=== PATIENT | male | born 1955 | race Caucasian/White ===

== ENCOUNTER 2020-12-21 15:52 | Day surgery (SDC) | payer BC ==
[2020-12-21] MEDS ORDERED: SYNVISC 16 MG/2 ML SYRINGE IU ONE (15:53)
[2020-12-21] MEDS ORDERED: Xylocaine 1% Vial 30 ML PF IJ ONE (15:53)
--- NOTE | 2020-12-22 08:35 | XRAY ---
Indication: Right knee injection. Intraoperative fluoroscopy provided for 10 seconds. Single digital spot image submitted for interpretation demonstrates needle tip projecting over the right femur intercondylar notch. Small amount of contrast injected for needle tip placement. Correlate with intraoperative findings/report.
--- NOTE | 2020-12-22 08:37 | XRAY ---
Indication: Left knee injection. Intraoperative fluoroscopy provided for 8 seconds. Single digital spot image submitted for interpretation demonstrates needle tip projecting over the left femur intercondylar notch. Small amount of contrast injected for needle tip placement. Correlate with intraoperative findings/report.
--- NOTE | 2020-12-22 08:40 | XRAY ---
10 seconds fluoroscopy time in surgery for intra-articular injection of the right knee.
--- NOTE | 2020-12-22 08:40 | XRAY ---
8 seconds fluoroscopy time in surgery for intra-articular injection of the left knee.
== END 2020-12-21 17:36 | disposition home or self-care (01) ==
LOC: SDC-PAIN 15:52
PROVIDERS: ATTEND Psychiatry & Neurology Pain Medicine
DX: M17.0 Bilateral primary osteoarthritis of knee (principal); F41.9 Anxiety disorder, unspecified; F32.9 Major depressive disorder, single episode, unspecified; J44.9 Chronic obstructive pulmonary disease, unspecified; Z79.01 Long term (current) use of anticoagulants
CPT/HCPCS: 73560; 77002; 82947; J2001; J7325

== ENCOUNTER 2020-12-28 14:09 | Day surgery (SDC) | payer BC ==
[2020-12-28] MEDS ORDERED: SYNVISC 16 MG/2 ML SYRINGE IU ONE (14:10)
[2020-12-28] MEDS ORDERED: Xylocaine 1% Vial 30 ML PF IJ ONE (14:10)
--- NOTE | 2020-12-28 17:40 | XRAY ---
6 seconds fluoroscopy time in surgery for intra-articular injection of the left knee.
--- NOTE | 2020-12-28 17:51 | XRAY ---
6 seconds fluoroscopy time in surgery for intra-articular injection of the right knee.
== END 2020-12-28 16:36 | disposition home or self-care (01) ==
LOC: SDC-PAIN 14:09
PROVIDERS: ATTEND Psychiatry & Neurology Pain Medicine
DX: M17.0 Bilateral primary osteoarthritis of knee (principal); E11.9 Type 2 diabetes mellitus without complications; J44.9 Chronic obstructive pulmonary disease, unspecified; Z79.899 Other long term (current) drug therapy
CPT/HCPCS: 20610; 73560; 77002; 82947; J2001; J7325; Q9966

== ENCOUNTER 2021-01-11 10:48 | Day surgery (SDC) | payer BC ==
[2021-01-11] MEDS ORDERED: Xylocaine 1% Vial 30 ML PF IJ ONE (10:49)
[2021-01-11] MEDS ORDERED: SYNVISC 16 MG/2 ML SYRINGE IU ONE (10:49)
--- NOTE | 2021-01-11 13:46 | XRAY ---
Indication: Right knee injection. Intraoperative fluoroscopy provided for 7 seconds. Single digital spot image submitted for interpretation demonstrates needle tip projecting over the right femur intercondylar notch. Small amount of contrast injected for needle tip placement. Correlate with intraoperative findings/report.
--- NOTE | 2021-01-11 13:48 | XRAY ---
8 seconds of fluoroscopy was used in surgery for a left intra-articular knee injection.
--- NOTE | 2021-01-11 13:48 | XRAY ---
7 seconds of fluoroscopy was used in surgery for a right intra-articular knee injection.
== END 2021-01-11 13:21 | disposition home or self-care (01) ==
LOC: SDC-PAIN 10:48
PROVIDERS: ATTEND Psychiatry & Neurology Pain Medicine
DX: M17.0 Bilateral primary osteoarthritis of knee (principal); Z79.01 Long term (current) use of anticoagulants; J44.9 Chronic obstructive pulmonary disease, unspecified
CPT/HCPCS: 20610; 73560; 77002; 82947; J2001; J7325; Q9966

== ENCOUNTER 2021-04-12 08:19 | Day surgery (SDC) | payer BC ==
[2021-04-12] MEDS ORDERED: LIDOCAINE HCL 2% 100 MG/5 ML IJ ONE (08:20)
[2021-04-12] MEDS ORDERED: Lactated Ringers 1,000 ML IV ONE (09:45)
[2021-04-12] MEDS ORDERED: DIPRIVAN 200 MG/20 ML IV ONE (09:47)
[2021-04-12] MEDS ORDERED: Ketamine HCl 50 MG/ML ONE (09:47)
--- NOTE | 2021-04-12 11:36 | XRAY ---
Indication: Bilateral L4-S1 MBB. Intraoperative fluoroscopy provided for 18 seconds. Single digital spot image submitted for interpretation demonstrates posterior needle tips projecting over the expected left and right L4-S1 nerve roots. Correlate with intraoperative findings/report.
--- NOTE | 2021-04-12 11:42 | XRAY ---
18 seconds fluoroscopy time in surgery for bilateral L4-S1 MBB.
== END 2021-04-12 10:20 | disposition home or self-care (01) ==
LOC: SDC-PAIN 08:19
PROVIDERS: ATTEND Psychiatry & Neurology Pain Medicine
DX: M47.816 Spondylosis without myelopathy or radiculopathy, lumbar region (principal); E11.9 Type 2 diabetes mellitus without complications; Z79.899 Other long term (current) drug therapy
CPT/HCPCS: 64493; 64494; 72020; 77002; 82947; J2704

== ENCOUNTER 2021-05-24 09:11 | Day surgery (SDC) | payer BC ==
[2021-05-24] MEDS ORDERED: BUPIVACAINE 0.5% VIAL IJ ONE (09:12)
[2021-05-24] MEDS ORDERED: DIPRIVAN 200 MG/20 ML IV ONE ×2 (10:42→10:49)
--- NOTE | 2021-05-24 11:40 | XRAY ---
16 seconds fluoroscopy time in surgery for bilateral L4-S1 MBB.
--- NOTE | 2021-05-24 11:44 | XRAY ---
Indication: Bilateral L4-S1 MBB. Intraoperative fluoroscopy provided for 16 seconds. Single digital spot images submitted for interpretation demonstrates posterior needle tips projecting over the expected left and right L4-S1 nerve roots. Correlate with intraoperative findings/report.
[2021-05-24] MEDS ORDERED: Lactated Ringers 1,000 ML IV ONE (15:20)
== END 2021-05-24 11:10 | disposition home or self-care (01) ==
LOC: SDC-PAIN 09:11
PROVIDERS: ATTEND Psychiatry & Neurology Pain Medicine
DX: M47.816 Spondylosis without myelopathy or radiculopathy, lumbar region (principal); E11.9 Type 2 diabetes mellitus without complications; Z79.899 Other long term (current) drug therapy
CPT/HCPCS: 64493; 64494; 72020; 77002; 82947; J2704

== ENCOUNTER 2022-07-04 09:51 | Day surgery (SDC) | payer BC ==
[2022-07-04] MEDS ORDERED: Depo-Medrol 40 MG/ML IM ONE (09:52)
[2022-07-04] MEDS ORDERED: BUPIVACAINE 0.5% VIAL IJ ONE (09:52)
[2022-07-04] MEDS ORDERED: Xylocaine 1% Vial 30 ML PF IJ ONE (09:52)
[2022-07-04 11:01] LABS: INR 0.97 (0.8-3.0); PROTIME 10.3 SECONDS (9.4-12.5)
[2022-07-04] MEDS ORDERED: DIPRIVAN 200 MG/20 ML IV ONE (11:22)
[2022-07-04] MEDS ORDERED: TORAdol 30 mg Injection ONE (11:27)
[2022-07-04] MEDS ORDERED: Ketamine HCl 50 MG/ML ONE (11:30)
[2022-07-04] MEDS ORDERED: Lactated Ringers 1,000 ML IV ONE (11:53)
--- NOTE | 2022-07-04 12:02 | XRAY ---
Indication: Right L4-S1 RFA. Intraoperative fluoroscopy provided for 38 seconds. 5 digital spot images submitted for interpretation demonstrates posterior needle tips projecting over expected right L4-S1 nerve roots. Correlate with intraoperative findings/report.
--- NOTE | 2022-07-04 12:02 | XRAY ---
38 seconds of fluoroscopy was used in surgery for a right L4-S1 RFA.
== END 2022-07-04 12:00 | disposition home or self-care (01) ==
LOC: SDC-PAIN 09:51
PROVIDERS: ATTEND Psychiatry & Neurology Pain Medicine
DX: M47.816 Spondylosis without myelopathy or radiculopathy, lumbar region (principal); E11.9 Type 2 diabetes mellitus without complications; Z79.01 Long term (current) use of anticoagulants
CPT/HCPCS: 36415; 64635; 64636; 72100; 77002; 82947; 85610; J1030; J1885; J2001; J2704

== ENCOUNTER 2022-07-18 09:41 | Day surgery (SDC) | payer BC ==
[2022-07-18] MEDS ORDERED: BUPIVACAINE 0.5% VIAL IJ ONE (09:42)
[2022-07-18] MEDS ORDERED: Depo-Medrol 40 MG/ML IM ONE (09:42)
[2022-07-18] MEDS ORDERED: Xylocaine 1% Vial 30 ML PF IJ ONE (09:42)
[2022-07-18] MEDS ORDERED: Reglan 10 MG/2 ML ONE (10:43)
[2022-07-18] MEDS ORDERED: Pepcid 20 MG VIAL IV ONE ×2 (10:43→10:45)
[2022-07-18 10:56] LABS: INR 1.08 (0.8-3.0); PROTIME 11.4 SECONDS (9.4-12.5)
[2022-07-18] MEDS ORDERED: DIPRIVAN 200 MG/20 ML IV ONE (11:38)
[2022-07-18] MEDS ORDERED: Ketamine HCl 50 MG/ML ONE (11:41)
[2022-07-18] MEDS ORDERED: Lactated Ringers 1,000 ML IV ONE (13:02)
--- NOTE | 2022-07-18 19:39 | XRAY ---
Indication: Left L4-S1 RFA. Intraoperative fluoroscopy provided for 28 seconds. 4 digital spot submitted for interpretation demonstrates posterior needle tips projecting over the expected left L4-S1 nerve roots. Correlate with intraoperative findings/report.
--- NOTE | 2022-07-18 20:02 | XRAY ---
28 seconds of fluoroscopy was used in surgery for a left L4-S1 RFA.
== END 2022-07-18 12:15 | disposition home or self-care (01) ==
LOC: SDC-PAIN 09:41
PROVIDERS: ATTEND Psychiatry & Neurology Pain Medicine
DX: M47.816 Spondylosis without myelopathy or radiculopathy, lumbar region (principal); E11.9 Type 2 diabetes mellitus without complications; Z79.899 Other long term (current) drug therapy; Z79.01 Long term (current) use of anticoagulants
CPT/HCPCS: 36415; 64635; 64636; 72100; 77002; 82947; 85610; J1030; J2001; J2704

== ENCOUNTER 2023-12-25 09:42 | Day surgery (SDC) | payer MEDICARE, OTHER ==
[2023-12-25] MEDS ORDERED: BUPIVACAINE 0.5% VIAL IJ ONE (09:43)
[2023-12-25] MEDS ORDERED: Depo-Medrol 40 MG/ML IM ONE (09:43)
[2023-12-25] MEDS ORDERED: XYLOCAINE-MPF 1% 5ML SDV IJ ONE (09:43)
[2023-12-25 10:30] LABS: INR 0.95 (0.8-3.0); PROTIME 10.4 SECONDS (9.4-12.5)
[2023-12-25] MEDS ORDERED: DIPRIVAN 200 MG/20 ML IV ONE (11:20)
[2023-12-25] MEDS ORDERED: DEXMEDETOMIDINE 80 MCG/20ML-NS IV ONE (11:20)
--- NOTE | 2023-12-25 11:47 | XRAY ---
Indication: Right L4-S1 RFA. Intraoperative fluoroscopy provided for 49 seconds. 4 digital spot image submitted for interpretation demonstrates posterior needle tips projecting over the expected right L4-S1 nerve roots. Correlate with intraoperative findings/report.
[2023-12-25] MEDS ORDERED: Lactated Ringers 1,000 ML IV ONE (12:00)
--- NOTE | 2023-12-25 12:47 | XRAY ---
49 seconds of fluoroscopy was used in surgery for a right L4-S1 RFA.
== END 2023-12-25 11:54 | disposition home or self-care (01) ==
LOC: SDC-PAIN 09:42
PROVIDERS: ATTEND Psychiatry & Neurology Pain Medicine
DX: M47.816 Spondylosis without myelopathy or radiculopathy, lumbar region (principal); Z79.01 Long term (current) use of anticoagulants; E11.9 Type 2 diabetes mellitus without complications
CPT/HCPCS: 36415; 64635; 64636; 72100; 77002; 82947; 85610; J1010; J2704

== ENCOUNTER 2024-01-01 09:45 | Day surgery (SDC) | payer MEDICARE, OTHER ==
[2024-01-01] MEDS ORDERED: BUPIVACAINE 0.5% VIAL IJ ONE (09:46)
[2024-01-01] MEDS ORDERED: XYLOCAINE-MPF 1% 5ML SDV IJ ONE (09:46)
[2024-01-01] MEDS ORDERED: Depo-Medrol 40 MG/ML IM ONE (09:46)
[2024-01-01 10:46] LABS: INR 0.94 (0.8-3.0); PROTIME 10.3 SECONDS (9.4-12.5)
[2024-01-01] MEDS ORDERED: DIPRIVAN 200 MG/20 ML IV ONE (11:31)
--- NOTE | 2024-01-01 13:03 | XRAY ---
Indication: Left L4-S1 RFA. Intraoperative fluoroscopy provided for 29 seconds. 3 digital spot image submitted for interpretation demonstrates posterior needle tips projecting over the expected left L4-S1 nerve roots. Correlate with intraoperative findings/report.
--- NOTE | 2024-01-01 13:05 | XRAY ---
29 seconds of fluoroscopy was used in surgery for a left L4-S1 RFA.
[2024-01-01] MEDS ORDERED: Lactated Ringers 1,000 ML IV ONE (13:12)
== END 2024-01-01 11:57 | disposition home or self-care (01) ==
LOC: SDC-PAIN 09:45
PROVIDERS: ATTEND Psychiatry & Neurology Pain Medicine
DX: M47.816 Spondylosis without myelopathy or radiculopathy, lumbar region (principal); Z79.01 Long term (current) use of anticoagulants; E11.9 Type 2 diabetes mellitus without complications
CPT/HCPCS: 36415; 64635; 64636; 72100; 77002; 82947; 85610; J1010; J2704

== ENCOUNTER 2025-05-05 10:35 | Day surgery (SDC) | payer MEDICARE, OTHER ==
[2025-05-05] MEDS ORDERED: BUPIVACAINE 0.5% VIAL IJ ONE (10:36)
[2025-05-05] MEDS ORDERED: LIDOCAINE HCL 1% 50 MG/5 ML VL IJ ONE (10:36)
[2025-05-05] MEDS ORDERED: methylPREDNISolone acetate IM ONE (10:36)
[2025-05-05] MEDS ORDERED: propofoL IV ONE (11:49)
[2025-05-05] MEDS ORDERED: Lactated Ringers 1,000 ML IV ONE (12:44)
--- NOTE | 2025-05-05 19:19 | XRAY ---
Indication: Right L4-S1 RFA. Intraoperative fluoroscopy provided for 17 seconds. Single digital spot image submitted for interpretation demonstrates posterior needle tips projecting over expected right L4-S1 nerve roots. Correlate with intraoperative findings/report.
--- NOTE | 2025-05-05 19:38 | XRAY ---
17 seconds of fluoroscopy was used in surgery for a right L4-S1 RFA.
== END 2025-05-05 12:25 | disposition home or self-care (01) ==
LOC: SDC-PAIN 10:35
PROVIDERS: ATTEND Psychiatry & Neurology Pain Medicine
DX: M47.817 Spondylosis without myelopathy or radiculopathy, lumbosacral region (principal); E11.9 Type 2 diabetes mellitus without complications

== ENCOUNTER 2025-05-19 10:36 | Day surgery (SDC) | payer MEDICARE, OTHER ==
[2025-05-19] MEDS ORDERED: BUPIVACAINE 0.5% VIAL IJ ONE (10:37)
[2025-05-19] MEDS ORDERED: methylPREDNISolone acetate IM ONE (10:37)
[2025-05-19] MEDS ORDERED: LIDOCAINE HCL 1% 50 MG/5 ML VL IJ ONE (10:37)
[2025-05-19] MEDS ORDERED: propofoL IV ONE ×2 (12:47→12:52)
--- NOTE | 2025-05-19 14:21 | XRAY ---
Indication: Left L4-S1 RFA. Intraoperative fluoroscopy provided for 30 seconds. 6 digital spot images submitted for interpretation demonstrates posterior needle tips projecting over expected left L4-S1 nerve roots. Correlate with intraoperative findings/report.
--- NOTE | 2025-05-19 14:25 | XRAY ---
30 seconds of fluoroscopy used in surgery for a left L4-S1 RFA.
[2025-05-19] MEDS ORDERED: Lactated Ringers 1,000 ML IV ONE (15:18)
== END 2025-05-19 13:28 | disposition home or self-care (01) ==
LOC: SDC-PAIN 10:36
PROVIDERS: ATTEND Psychiatry & Neurology Pain Medicine
DX: M47.817 Spondylosis without myelopathy or radiculopathy, lumbosacral region (principal); E11.9 Type 2 diabetes mellitus without complications